=== PATIENT | male | born 1975 | race African-American/Black ===

== ENCOUNTER 2025-02-14 14:12 | Emergency (ER) | payer OTHER, SELFPAY ==
--- OUTSIDE RECORDS SUMMARY | 2024-07-01 11:00 | XMS_ITS ---
Author Organization [facility] Address [address] [place] [id number] Care Team Providers Care Air Hole Driller Name Role Phone Daja Elizabeth Primary Care Provider Cy Brooks Unavailable [phone] Silver Terry Unavailable [phone] REASON FOR VISIT R/S DUE TO PROVIDER OUT OF CLINIC Social History Sex Assigned At : Social History Observation Description Sex Assigned At Male Encounters Encounter Location Date Provider Diagnosis [facility] [address] [place] [phone] 07/01/2024 Silver Terry Plan Of Treatment No Information Progress Notes * AMA WANGDOB:[birth year] (49 yo M)Acc No.[id number]:07/01/2024 Patient: AMA GOMEZ Provider: Gabriel Terry MD :1975 A ge:48 Y S ex:Male Date:07/01/2024 Address:[address] [place], [place] [phone] Pcp:Daja Elizabeth Subjective: * Chief Complaints: * 1 . R/S DUE TO PROVIDER OUT OF CLINIC. * Medical History: Objective: * Vitals: Assessment: Plan: * Treatment: * Billing Information: * Visit Code: * Procedure Codes: * Electronic signature of Velasquez Terry MD on 02/14/2025 at 02:29 PM CDT Sign off status: Pending * Provider: Gabriel Terry MD Date: 0 07/01/2024 Generated for Lottie dias/Esteban/eTransmitting on: 0 02/14/2025 02:29 PM CDT
--- OUTSIDE RECORDS SUMMARY | 2024-10-16 04:00 | XMS_ITS ---
Author Organization [employer] [facility] Address [address] [facility] [address] [place] [address] Care Team Providers Care Subscription Clerk Name Role Phone Migration, Provider Unavailable Unavailable REASON FOR VISIT EMR-Ji Encounters Encounter Location Date Provider Diagnosis Migrated_Facility 0 0 10/16/2024 Provider Migration Plan Of Treatment No Information Progress Notes * AMA WANG ADOB:1975 (49 yo M)Acc No.[id number]:10/16/2024 Patient: AMA GOMEZ :1975 A ge:49 Y S ex:Male Address:[address] [place] [address] [address], [facility] [address] Subjective: * Chief Complaints: * E MR-Ji * * Date:
--- OUTSIDE RECORDS SUMMARY | 2024-10-17 04:00 | XMS_ITS ---
Author Organization [employer] [facility] Address [address] [facility] [address] [place] [address] Care Team Providers Care Shorer Name Role Phone Migration, Provider Unavailable Unavailable Allergies No Known Allergies REASON FOR VISIT EMR-[facility] [place], [place] Medications Medication SIG (Take, Route, Fr equency, Duration) Notes Start Date End Date Status Naproxen 375 MG Tablet Dosage unknown. O ne tablet daily. Oral 02/18/2018 Active Social History Social History Additional Details Category Social Info Options Details Migrated Social History Migrated Social History denies any alcohol use, , regular diet without modifications, , Exercise :: 30 minutes of walking, 5 times per week, , Smoking/Tobacco Use :: denies any tobacco use Encounters Encounter Location Date Provider Diagnosis Migrated_Facility 0 0 10/17/2024 Provider Migration Plan Of Treatment No Information Progress Notes * AMA WANG ADOB:1975 (49 yo M)Acc No.[id number]:10/17/2024 Patient: AMA GOMEZ :1975 A ge:49 Y S ex:Male Address:[address] [place] [address], [facility] [address] Subjective: * Chief Complaints: * E MR-Ji * Medical History: Age: No, Age: No, C ardiology Procedures-Invasive: no invasive or interventional cardiovascular procedures performed, C ardiology Procedures-NonInvasive: no known non-invasive cardiovascular testing, C ardiovascular Illnesses: no history of cardiovascular disease, F amily History of Heart Disease: Yes, Family History of Heart Disease: Yes, H istory of Diabetes Mellitus: No, History of Diabetes Mellitus: No, H istory of Hyperlipidemia: No, History of Hyperlipidemia: No, H istory Of Obesity: No, History Of Obesity: No, H istory of Tobacco Use: No, History of Tobacco Use: No, H ypertension: No, Hypertension: No, I nfectious History: no significant history of infectious disease, M enopausal Female: No, Menopausal Female: No, N ew [place] Heart Association Class: I, P ast Medical Illnesses: no significant history of medical illness or disease, P eripheral Vascular Procedures: no invasive peripheral vascular procedures performed, P rior History of Heart Disease: No, Prior History of Heart Disease: No, S edentary Lifestyle: No, Sedentary Lifestyle: No, S urgeries/Procedures: Vasectomy (2007), T rauma History: no history of significant physical trauma, * Family History: M igrated Family History: Y, : Hypertension. * Social History: M igrated Social History: M igrated Social History: denies any alcohol use,,regular diet without modifications,,Exercise :: 30 minutes of walking, 5 times per week,,Smoking/Tobacco Use :: denies any tobacco use. * Medications: T akingNaproxen 375 MG Tablet Dosage unknown. One tablet daily. Oral Taking Naproxen 375 MG Tablet Dosage unknown. One tablet daily. Oral * Allergies: N .K.D.A. * * Date:
--- OUTSIDE RECORDS SUMMARY | 2024-10-19 09:00 | XMS_ITS ---
Author Organization [facility] Address [address] [place] [id number] Care Team Providers Care Director Retail Brand Development Name Role Phone Daja Elizabeth Primary Care Provider Cy Brooks Unavailable [phone] REASON FOR VISIT Neurology New Patient Social History Sex Assigned At : Social History Observation Description Sex Assigned At Male Encounters Encounter Location Date Provider [facility] [address] [place] [phone] 10/19/2024 Cy Mcqueen Plan Of Treatment No Information Progress Notes * AMA WANGDOB:[birth year] (49 yo M)Acc No.[id number]:10/19/2024 Patient: AMA GOMEZ Provider: Devin Mcqueen MD :1975 A ge:49 Y S ex:Male Date:10/19/2024 Address:[address] [place], [place] [phone] Pcp:Daja Elizabeth Subjective: * Chief Complaints: * 1 . Neurology New Patient. * Medical History: Objective: * Vitals: Assessment: Plan: * Treatment: * Billing Information: * Visit Code: * Procedure Codes: * Electronic signature of Camlio Mcqueen MD on 02/14/2025 at 02:28 PM CDT Sign off status: Pending * Provider: Devin Mcqueen MD Date: 0 10/19/2024 Generated for Printi ng/Faxing/eTransmitting on: 0 02/14/2025 02:28 PM CDT
--- NOTE | 2025-02-14 14:22 | ED_ITS ---
HPI - Wound/Laceration General Chief Complaint: Wound/Laceration Stated Complaint: Gash on forehead Time Seen by Provider: 02/14/25 14:31 Source: patient, RN notes reviewed and old records reviewed Mode of arrival: ambulatory Limitations: no limitations History of Present Illness HPI narrative: 49 year old male who presents to Express Care with complaints of laceration to his forehead which occurred on Friday when piece of metal hit him in the head at an angle. Patient reports that he had his hat on and he had a lot of blood from the wound, did not have any LOC Patient states that when he touches the wound he feels a little nausea and dizziness. Patient reports tetanus was 2017 and refuses update today. Patient denies any visual diturbances or any vomiting or any increase in discomfort. 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 Onset (ago): day(s) (3 days ago) Location: scalp (frontal area next to hair line) Place: outdoors Treatments prior to arrival: bandage and other (Ibuprofen and Excedrin) Related Data Home Medications ?Medication ?Instructions ?Recorded ?Confirmed ?Last Taken ?Type No Home Medications 02/14/25 02/14/25 U nknown History Allergies Allergy/AdvReac Type Severity Reaction Status Date / Time No Known Allergies Allergy Verified 02/14/25 14:30 Review of Systems Review of Systems: CONSTITUTIONAL: Denies fever, chills, or sweats. CARDIOVASCULAR: Denies chest pain, palpitations, or edema. RESPIRATORY: Denies cough or dyspnea. SKIN: Reports laceration to the frontal aspect of his head which occurred on Friday no active bleeding noted, reports no LOC at time of incident MUSCULOSKELETAL: Denies musculoskeletal pain NEUROLOGIC: Denies numbness, or weakness.reports when he touches area feels a little nausea and dizzy All systems reviewed & are unremarkable except as noted in HPI and below ( ) [facility] Surgical History Surgical History (Updated 02/14/25 @ 14:44 by Josey Barger NP) H/O vasectomy Social History Social History (Updated 02/15/25 @ 09:32 by Josey Barger NP) Smoking status: Never smoker Substance use type: does not use Living arrangements: with family Additional occupation/education comments: from [place] is otr company truck driver Gender identity (if verbalized by the patient): Male Comments At time of signature, agree with nursing past medical, surgical, social and family history. There is no relevant family history pertinent to the presenting complaint Exam Narrative: GENERAL: Well-appearing, well-nourished, and in no acute distress. HEAD: Normocephalic, 1cm X0.4cm laceration to frontal aspect of head near hairline region occurred on Friday which is healing no depth noted. wound cleansed with Skintegrity Neosporin and band-aide applied over site no bleeding noted no swelling around wound, patient has no nystagmus is alert and fully oriented denies any increased pain to area. NECK: Supple. no lymphadenopathy CHEST: Clear to auscultation. No respiratory distress.SAO2 99% on room air HEART: Regular rate and rhythm. No murmur heard. Normal peripheral pulses. EXTREMITIES: Normal range of motion. No edema. SKIN: Warm, dry, no rash. Reports laceration as noted above is healing,occurred on Friday NEURO: No focal deficits. Alert and oriented x3.cranial nerves II-XII intact with no deficit, reports mild nausea and dizziness when he touches wound, gait steady moves all extremities well Course Course Level of Care: Express Care Visit Vital Signs Vital signs: Vital Signs Temperature 36.6 C 02/14/25 14:29 Pulse Rate 60 02/14/25 14:29 Respiratory Rate 18 02/14/25 14:29 Blood Pressure 143/78 H 02/14/25 14:29 Pulse Oximetry 99 02/14/25 14:29 Oxygen Delivery Room Air 02/14/25 14:29 Temperature 36.6 C 02/14/25 14:29 Pulse Rate 60 02/14/25 14:29 Respiratory Rate 18 02/14/25 14:29 Blood Pressure 143/78 H 02/14/25 14:29 Pulse Oximetry 99 02/14/25 14:29 Oxygen Delivery Room Air 02/14/25 14:29 reviewed MDM - Wound/Laceration MDM Narrative Medical decision making narrative: Wound explored for foreign body and cleansed and irrigated provided with no evidence of FB. Discussed the potential of retained foreign body with the patient and signs/symptoms that should prompt the patient to immediately go to the ED for reevaluation. The wound was explored and no foreign bodies were found. The wound was not closed over 24 hours old. A band-aide dressing was then applied and anticipatory guidance was provided. Tetanus prophylaxis was not given Differential Diagnosis Differential diagnosis: Likely laceration, abrasion, avulsion of skin and other (wound evaluation, wound more than 24 hours old) Medical Records Attestation: I reviewed the patient's medical records. Critical Care Time Critical Care Time Critical Care Time: No Discharge Plan Discharge Clinical Impression: Laceration of scalp Qualifiers: Encounter type: initial encounter Qualified Code(s): S01.01XA - Laceration with out foreign body of scalp, initial encounter Minor head injury Qualifiers: Encounter type: initial encounter Qualified Code(s): S09.90XA - Unspecified injury of head, initial encounter Patient Disposition: Home Condition: Stable Instructions: Head Injury (ED), Head Laceration (ED) Additional Instructions: Keep the area clean and dry No continuous water contact like dishes or swimming You may bathe and wash you hair caution with hair prodcts Antibiotic ointment to the area 1-2x times a day dressing of choice watch for infection--redness, swelling, drainage Maintain adequate diet and fluid intake recheck with PCP if further concerns or problems If any acute headaches nausea and vomiting her or acute dizziness go directly to ED or call 911 If your symptoms persist, change or worsen significantly before you can contact your personal physician then please, without delay, go to the emergency department for further evaluation. Follow-up with PCP in 7-10 days or sooner if needed Follow up with PCP soon in regards to your blood pressure which is elevated above threshold for referral. Blood pressure above 120/80 may indicate pre- hypertension. laceration over 24 hours old Patient Language: Angolan Prescriptions: No Action No Home Medications Follow-up/Referrals: UNKNOWN,DOCTOR [Primary Care Provider] Time of Disposition: 14:55 Quality Luna Coma Scale Eyes: Open Verbal: Oriented and Alert Motor: Follows Commands Luna Coma Total Score: 15
[2025-02-14 14:29] VITALS: BP 143/78; PULSE 60; RESP 18; TEMP 36.6; O2SAT 99
--- OUTSIDE RECORDS SUMMARY | 2025-02-14 14:29 | XMS_ITS | Patient Health Record ---
Author Organization [facility] Billing Info Address [address] [place] [id number] Care Team Providers Care Jewelsmith Name Role Phone Ronald Vieyra Primary Care Provider Unavailabl e Reason For Referral No Information Medications Medication SIG (Take, Route, Frequency, Duration) Notes Start Date End Date Status Lisinopril-Hydrochloroth iazide 10-12.5 MG 1 tablet Orally Once a day for 30 day(s) Active Metoprolol Succinate ER 25 MG 1 tablet Orally Once a day for 30 day(s) Not-Taking Social History Tobacco Use: Social History Observation Description Date Details (start date - stop date) Never Smoker NA - NA Tobacco Status: Question Answer Notes Patient is a never smoker Plan Of Treatment Pending Test Test Name Order Date Rhythm Strip W/ INTERP (03617) ([employer]- MMIQECGR) IH 03/27/2020 Insurance Providers Payer Name Payer Address Payer Phone Subscriber Number Group Number Insured Name Patient Relationship to Insured Coverage Start Date Coverage End Date [facility] [address] [place], [place] [id number] Dillan Mckeon Self - patient is the insured 9 9 Medical (General) History Medical History History ICD Code Obesity SOB Chest pressure Surgical History Surgery Date(Month/Year) vasectomy cardiac cath 03/23/2020 Hospitalization History Reason Date(Month/Year) See above
--- OUTSIDE RECORDS SUMMARY | 2025-02-14 14:29 | XMS_ITS | Patient Health Record ---
Author Organization [facility] Address [address] [place], [place] [id number] Care Team Providers Care Invoice Machine Operator Name Role Phone Daja Elizabeth Primary Care Provider Cy Brooks Unavailable Silver Terry Unavailable [phone] Reason For Referral No Information Social History Sex Assigned At : Social History Observation Description Sex Assigned At Male Plan Of Treatment No Information Insurance Providers Payer Name Payer Address Payer Phone Subscriber Number Group Number Insured Name Patient Relationship to Insured Coverage Start Date Coverage End Date Blue Cross Blue Shield PPO [address] [place], [place] [phone] [id number] AMA WANG Self - patient is the insured [facility] [address] [place] [id number] AMA WANG Self - patient is the insured 9
--- OUTSIDE RECORDS SUMMARY | 2025-02-14 14:29 | XMS_ITS | Patient Health Record ---
Author Organization [employer] [facility] Address [address] [facility] [address] [place] [address] Care Team Providers Care Local Intermodal Truck Driver Name Role Phone Migration, Provider Unavailable Unavailable Allergies No Known Allergies Reason For Referral No Information Medications Medication SIG (Take, Route, Fr equency, [...] Smoking/Tobacco Use :: denies any tobacco use Problems Problem Type SNOMED Code ICD Code Onset Dates Problem Status W/U Status Risk Notes Problem Chest pain (40944238) Chest pain, unspecified (R07.9) 018 Active confirmed New Problem Electrocardiogram abnormal (322081506) Abnormal electrocardiogram [ECG] [EKG] (R94.31) 018 Active confirmed New Encounters Encounter Location Date Provider Diagnosis Migrated_Facility 0 0 10/16/2024 Provider Migration Migrated_Facility 0 0 10/17/2024 Provider Migration Plan Of Treatment No Information Insurance Providers Payer Name Payer Address Payer Phone Subscriber Number Group Number Insured Name Patient Relationship to Insured Coverage Start Date Coverage End Date [facility] [address] [place] [phone] [id number] AMA WANG Self - patient is the insured
== END 2025-02-14 15:00 | disposition home or self-care (01) ==
PROVIDERS: Emergency Provider Registered Nurse
DX: S01.01XA Laceration without foreign body of scalp, initial encounter (principal); W22.8XXA Striking against or struck by other objects, initial encounter; Z98.52 Vasectomy status
CPT/HCPCS: 99202; G0463